=== PATIENT | female | born 1940 | race African-American/Black ===

== ENCOUNTER 2025-07-04 15:07 | Emergency (ER) | payer MEDICARE ==
[~2025-07-04] VITALS: Ht 170.2 cm; Wt 90.0 kg
[2025-07-04 15:09] VITALS: O2SAT 89
[2025-07-04] MEDS: SODIUM CHLORIDE 0.9% (SEPSIS BOLUS) IV ONE (15:47)
[2025-07-04 16:07] VITALS: O2SAT 99
[2025-07-04] MEDS: PIPERACILLIN/TAZO 3.375G/50ML 50 ML IV ONE (16:19)
[2025-07-04] MEDS: NOREPINEPHRINE 8MG/250ML PMX 250 ML IV SCH (16:19)
[2025-07-04 16:53] LABS: BASOPHILS % 0.1 % (0.0-2.0); EOSINOPHILS % 0.1 % (0.0-5.0); HEMATOCRIT. 34.5 % (36.0-48.0); HEMOGLOBIN. 11.0 g/dL (12.0-16.0); LYMPHOCYTES % 19.7 % (20.0-50.0); MEAN PLATELET VOLUME 9.3 fl (7.4-10.4); MONOCYTES % 11.6 % (2.0-8.0); NEUTROPHILS % 68.5 % (40.0-76.0); PLATELET 328 x1000/uL (130-400); RED BLOOD CELL COUNT 4.16 mill/uL (4.2-5.4); RED CELL DISTRIBUTION WIDTH 16.6 % (11.6-14.6)
[2025-07-04 17:05] LABS: INR 1.3
[2025-07-04 17:07] LABS: CREATININE 2.7 mg/dL (0.6-1.0); UREA NITROGEN BLOOD 68 mg/dL (9-23)
[2025-07-04 17:08] LABS: PROTEIN TOTAL 8.0 g/dL (6.0-8.3)
[2025-07-04 17:09] LABS: ASPARTATE AMINOTRANSFERASE 26 IU/L (<34); BILIRUBIN DIRECT < 0.1 mg/dL (<=3.0); BILIRUBIN TOTAL 0.2 mg/dL (0.1-1.0)
[2025-07-04 17:25] LABS: TROPONIN I HIGH SENSITIVITY 94 ng/L (3.0-34)
[2025-07-04 17:33] VITALS: BP 0/0; PULSE 0; RESP 0; TEMP 36.4; O2SAT 0
[2025-07-04 17:44] LABS: BG BASE EXCESS -7.8 mmol/L (-2.0-3.0); BG CARBOXYHEMOGLOBIN 0.6 % (0.5-1.5); BG DEOXYHEMOGLOBIN 0.7 % (0.0-5.0); BG FLOW(L/min) 30.00 L/min; BG FRACTION INSPIRED OXYGEN 100; BG HCO3 ACT 20.7 mmol/L (21.0-28.0); BG METHEMOGLOBIN 0.1 % (0.5-1.5); BG OXYGEN SATURATION 99.3 % (94.0-98.0); BG OXYHEMOGLOBIN 98.6 % (94.0-98.0); BG PCO2 55.7 mmHg (32.0-45.0); BG PH 7.188 (7.350-7.450); BG PO2 202.6 mmHg (83.0-108.0); BG SAMPLE SITE RIGHT RADIAL; BG TOTAL HEMOGLOBIN 11.8 g/dL (12.0-16.0); BG VENT MODE HIGH FLOW
== END 2025-07-04 17:33 ==
LOC: ER 15:07 → EDBEDREQ 15:43 → ER 17:33 → CANBEDREQ 17:37
DX: A41.9 Sepsis, unspecified organism (principal); I46.9 Cardiac arrest, cause unspecified; J96.00 Acute respiratory failure, unspecified whether with hypoxia or hypercapnia; R65.21 Severe sepsis with septic shock; E78.00 Pure hypercholesterolemia, unspecified; E03.9 Hypothyroidism, unspecified; Z79.899 Other long term (current) drug therapy
CPT/HCPCS: 36556; 80076; 80048; 83880; 83605; 83735; 85025; 85610; 85730; 86850; 86900; 86901; 87040; 87186; 84484; 87077; 36415; 84145; 71045; 82805; 82375; 94664; 93005; 94070; 96365; 99291; 36600; J3490; J2543; J7030